=== PATIENT | female | born 1990 | race Caucasian/White ===

== ENCOUNTER 2023-05-11 22:47 | Emergency (ER) | payer SELFPAY ==
[2023-05-12] MEDS ORDERED: HYDROmorphone 1 MG/ML Syringe IM ONE (01:37)
== END 2023-05-12 02:35 | disposition home or self-care (01) ==
LOC: JD.ED 22:47
DX: M70.61 Trochanteric bursitis, right hip (principal); K21.9 Gastro-esophageal reflux disease without esophagitis; E11.9 Type 2 diabetes mellitus without complications; E03.9 Hypothyroidism, unspecified; Z86.16 Personal history of COVID-19; Z91.048 Other nonmedicinal substance allergy status; Z88.8 Allergy status to other drugs, medicaments and biological substances; Z88.6 Allergy status to analgesic agent; Z88.2 Allergy status to sulfonamides; Z79.899 Other long term (current) drug therapy; W18.30XA Fall on same level, unspecified, initial encounter
CPT/HCPCS: 72192; 73502; 96372; 99284; J1170; 99283